=== PATIENT | female | born 1975 | race Caucasian/White ===

== ENCOUNTER 2017-03-02 10:08 | Emergency (ER) | payer SELFPAY ==
[2017-03-02] MEDS ORDERED: Albuterol/Ipratropium 3.0-0.5 MG/3 ML Neb Soln NEB ONE (10:18)
[2017-03-02] MEDS ORDERED: methylPREDNISolone Sodium Succinate 125 MG/2 ML SDV IM ONE (10:19)
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
[2017-03-02] MEDS ORDERED: Racepinephrine 2.25% 0.5 ML Neb Soln ONE (10:37)
[2017-03-02] MEDS ORDERED: Racepinephrine 2.25% 0.5 ML Neb Soln NEB ONE ×2 (10:37→10:39)
[2017-03-02] MEDS ORDERED: LORazepam 2 MG/ML MDV IVPUSH ONE (10:44)
[2017-03-02] MEDS ORDERED: Benzonatate 100 MG Cap PO ONE (10:44)
[2017-03-02] MEDS ORDERED: methylPREDNISolone Sodium Succinate 125 MG/2 ML SDV IVPUSH SCH (10:45)
[2017-03-02 11:26] LABS: CHLORIDE,CL 108 mmol/L (98-110); SODIUM,NA 142 mmol/L (136-146)
--- NOTE | 2017-03-02 11:26 | CR ---
EXAMINATION: Portable chest radiograph. HISTORY: Cough. FINDINGS: The trachea is midline. The cardiomediastinal silhouette is within normal limits. No pulmonary infil trates, effusions or pneumothorax. Osseous structures appear unremarkable. IMPRESSION: No acute cardiopulmonary process.
--- NOTE | 2017-03-02 11:35 | EDM.PDOC ---
[id number] Information: Reports: Patient History Limitations: Reports: No Limitations Bilateral Anterior Chest Pain Score (Numeric/FACES): 9 - Related Data Allergies Allergy/AdvReac Type Severity Reaction Status Date / Time acetaminophen [From Vicodin] Allergy Stomach Verified 10/17/14 18:01 Upset codeine Allergy Stomach Verified 10/17/14 18:01 Upset hydrocodone bitartrate Allergy Stomach Verified 10/17/14 18:01 [From Vicodin] Upset morphine Allergy Stomach Verified 10/17/14 18:01 Upset oxycodone HCl [From Percocet] Allergy Stomach Verified 10/17/14 18:01 Upset maple Allergy Airway Uncoded 03/02/17 10:39 Tightness MSG Allergy Airway Uncoded 03/02/17 10:39 Tightness mushrooms Allergy Airway Uncoded 03/02/17 10:39 Tightness tomato Allergy Airway Uncoded 03/02/17 10:39 Tightness yeast Allergy Airway Uncoded 03/02/17 10:39 Tightness Home Meds: Home Meds Albuterol [Ventolin HFA] 2 puff [id number] PRN 03/02/17 [History] Benzonatate 200 mg PO TID #30 capsule 03/02/17 [Rx] Cholecalciferol (Vitamin D3) [Vitamin D] 1 tab DAILY 03/02/17 [History] Dextromethorphan/guaiFENesin [Mucinex DM ER 600-30 MG] 1 tab PO BID PRN #20 tab.er 03/02/17 [Rx] Fexofenadine [Miriam] 1 tab DAILY 03/02/17 [History] Fluticasone Propionate [Flovent HFA 110 MCG] 12 gm INH BID #1 inhaler 03/02/17 [ Rx] Prednisone [IMW: predniSONE] 60 mg PO WITHBREAKFAST #21 tab 03/02/17 [Rx] Past Medical History HEENT History: Reports: None Cardiovascular History: Reports: None Respiratory History: Reports: Asthma, Other (See Below) Other Respiratory History: Reactive Airway Disease Gastrointestinal History: Reports: None Genitourinary History: Reports: None REPAIR MILLER History: Reports: None Musculoskeletal History: Reports: None Neurological History: Reports: None Psychiatric History: Reports: None Endocrine/Metabolic History: Reports: None Immunologic History: Reports: None Oncologic (Cancer) History: Reports: None Dermatologic History: Reports: None Social & Family History - Tobacco Use Smoking Status *Q: Current Every Day Smoker Years of Tobacco use: 4 Used Tobacco, but Quit: No Month Tobacco Last Used: Nov Second Hand Smoke Exposure: Yes - Caffeine Use Caffeine Use: Reports: None - Alcohol Use Days Per Week of Alcohol Use: 0 - Recreational Drug Use Recreational Drug Use: No ED ROS GENERAL - Review of Systems Review Of Systems: See Below (Per history of present illness) ED EXAM, GENERAL - Physical Exam Exam: See Below (Per history of present illness) Course - Vital Signs Last Recorded V/S: Last Vital Signs Temp 36.7 C 03/02/17 12:10 Pulse 75 03/02/17 12:10 Resp 20 03/02/17 12:10 BP 118/69 03/02/17 12:10 Pulse Ox 98 03/02/17 12:10 - Orders/Labs/Meds Labs: Laboratory Tests 03/02/17 03/02/17 Range/Units 10:50 10:50 WBC 6.83 (4.0-11.0) K/uL RBC 4.82 (4.30-5.90) M/uL Hgb 13.4 (12.0-16.0) g/dL Hct 41.1 (36.0-46.0) % MCV 85.3 (80.0-98.0) fL MCH 27.8 (27.0-32.0) pg MCHC 32.6 (31.0-37.0) g/dL RDW Std Deviation 46.7 (28.0-62.0) fl RDW Coeff of Rasheeda 15 (11.0-15.0) % Plt Count 250 (150-400) K/uL MPV 9.40 (7.40-12.00) fL Neut % (Auto) 56.0 (48.0-80.0) % Lymph % (Auto) 37.2 (16.0-40.0) % [place] % (Auto) 4.2 (0.0-15.0) % Eos % (Auto) 1.9 (0.0-7.0) % Baso % (Auto) 0.7 (0.0-1.5) % Neut # (Auto) 3.8 (1.4-5.7) K/uL Lymph # (Auto) 2.5 H (0.6-2.4) K/uL [place] # (Auto) 0.3 (0.0-0.8) K/uL Eos # (Auto) 0.1 (0.0-0.7) K/uL Baso # (Auto) 0.1 (0.0-0.1) K/uL Nucleated RBC % 0.0 /100WBC Nucleated RBCs # 0 K/uL Sodium 142 (136-146) mmol/L Potassium 3.8 (3.5-5.1) mmol/L Chloride 108 (98-110) mmol/L Carbon Dioxide 23 (21-31) mmol/L BUN 9 (6.0-23.0) mg/dL Creatinine 0.8 (0.6-1.5) mg/dL Est Cr Clr Drug Dosing TNP Estimated GFR (MDRD) > 60.0 ml/min Glucose 100 (60-110) mg/dL Calcium 9.3 (8.8-10.8) mg/dL Total Bilirubin 0.3 (0.1-1.5) mg/dL AST 13 (5-40) IU/L ALT 16 (8-54) IU/L Alkaline Phosphatase 52 (40-150) Total Protein 7.0 (6.0-8.0) g/dL Albumin 4.2 (3.5-5.0) g/dL Globulin 2.8 (2.0-3.5) g/dL Albumin/Globulin Ratio 1.5 (1.3-2.8) Meds: Medications Discontinued Medications Generic Name Dose Route Start Last Admin Trade Name Jakeq PRN Reason Stop Dose Admin Albuterol/Ipratropium 3 ml 03/02/17 10:18 03/02/17 10:26 Duoneb 3.0-0.5 Mg/3 Ml NEB 03/02/17 10:19 3 ml ONETIME ONE Administration Benzonatate 200 mg 03/02/17 10:44 03/02/17 11:01 Tessalon Perles PO 03/02/17 10:45 200 mg ONETIME ONE Administration Lorazepam 1 mg 03/02/17 10:44 03/02/17 11:00 Ativan IVPUSH 03/02/17 10:45 1 mg ONETIME ONE Administration Methylprednisolone Sodium Succinate 125 mg 03/02/17 10:19 Solu-Medrol IM 03/02/17 10:20 ONETIME ONE Methylprednisolone Sodium Succinate 125 mg 03/02/17 10:45 03/02/17 10:41 Solu-Medrol IVPUSH 125 mg Q6H SIRENA Administration Racepinephrine 0.5 ml 03/02/17 10:37 03/02/17 10:44 S-2 2.25% NEB 03/02/17 10:38 Not Given ONETIME ONE Racepinephrine 0.5 ml 03/02/17 10:39 03/02/17 10:41 S-2 2.25% NEB 03/02/17 10:40 Not Given ONETIME ONE Racepinephrine Confirm 03/02/17 10:37 03/02/17 10:41 S-2 2.25% Administered 03/02/17 10:38 Not Given Dose 0.5 ml .ROUTE .STK-MED ONE Departure - Departure Time of Disposition: 11:35 Disposition: Home, Self-Care 01 Condition: good Clinical Impression: Acute asthma, Viral URI with cough, Asthma exacerbation - Discharge Information Prescriptions: Benzonatate 200 mg PO TID #30 capsule Dextromethorphan/guaiFENesin [Mucinex DM ER 600-30 MG] 1 tab PO BID PRN #20 tab.er PRN Reason: Congestion Fluticasone Propionate [Flovent HFA 110 MCG] 12 gm INH BID #1 inhaler Prednisone [IMW: predniSONE] 60 mg PO WITHBREAKFAST #21 tab Instructions: Asthma, Adult, Upper Respiratory Infection, Adult, [id number] Referrals: PCP,None [Primary Care Provider] - Forms: ED Department Discharge Additional Instructions: Your findings are consistent with a viral upper respiratory infection. A viral infection does not require antibiotics nor would they be helpful. This is why he did not feel any symptomatic improvement after your course of Zithromax . Your chest x-ray does not show any pneumonia or acute abnormality. It's important that you finish prednisone as prescribed. Use Mucinex DM and Tessalon as prescribed as needed for cough. Use inhaled steroids as prescribed for 14 days. He may find humidified air very helpful so use a humidifier, especially while sleeping. All up with your DrKavita tomorrow and return immediately for new severe or worsening symptoms ED HISTORY OF PRESENT ILLNESS - General Chief Complaint: Respiratory Problem Stated Complaint: HARD TIME BREATHING Time Seen by Provider: 03/02/17 10:16 Source of Information: Reports: Patient, Family History Limitations: Reports: No Limitations - History of Present Illness INITIAL COMMENTS - FREE TEXT/NARRATIVE: HISTORY AND PHYSICAL: History of present illness: [41-year-old female with a history of asthma now complaining of productive cough. No exertional chest pain. No fevers chills sweats or shaking chills. Denies abdominal pain Review of systems: As per history of present illness and below otherwise all systems reviewed and negative. Past medical history: As per history of present illness and as reviewed below otherwise noncontributory. Surgical history: As per history of present illness and as reviewed below otherwise noncontributory. Social history: No reported history of drug or alcohol abuse. Family history: As per history of present illness and as reviewed below otherwise noncontributory. Physical exam: HEENT: Atraumatic, normocephalic, pupils reactive, negative for conjunctival pallor or scleral icterus, mucous membranes moist, throat clear, neck supple, nontender, trachea midline. Lungs: Clear to auscultation, breath sounds equal bilaterally, chest nontender. Heart: S1S2, regular, negative for clicks, rubs, or JVD. Abdomen: Soft, nondistended, nontender. Negative for masses or hepatosplenomegaly. Negative for costovertebral tenderness. Pelvis: Stable nontender. Genitourinary: Deferred. Rectal: Deferred. Extremities: Atraumatic, negative for cords or calf pain. Neurovascular unremarkable. Neuro: Awake, alert, oriented. Cranial nerves II through XII unremarkable. Cerebellum unremarkable. Motor and sensory unremarkable throughout. Exam nonfocal. Diagnostics: [] Therapeutics: [] Impression: [] Plan: [Signs and symptoms consistent with asthma exacerbation and bronchitis. Patient will be treated. Stable on reevaluation prior to discharge. Patient agrees with outpatient follow-up and strict return precautions given] Definitive disposition and diagnosis as appropriate pending reevaluation and review of above. - Related Data Allergies/ADRs: Allergies Allergy/AdvReac Type Severity Reaction Status Date / Time acetaminophen [From Vicodin] Allergy Stomach Verified 10/17/14 18:01 Upset codeine Allergy Stomach Verified 10/17/14 18:01 Upset hydrocodone bitartrate Allergy Stomach Verified 10/17/14 18:01 [From Vicodin] Upset morphine Allergy Stomach Verified 10/17/14 18:01 Upset oxycodone HCl [From Percocet] Allergy Stomach Verified 10/17/14 18:01 Upset maple Allergy Airway Uncoded 03/02/17 10:39 Tightness MSG Allergy Airway Uncoded 03/02/17 10:39 Tightness mushrooms Allergy Airway Uncoded 03/02/17 10:39 Tightness tomato Allergy Airway Uncoded 03/02/17 10:39 Tightness yeast Allergy Airway Uncoded 03/02/17 10:39 Tightness Home Meds: Home Meds Albuterol [Ventolin HFA] 2 puff [id number] PRN 03/02/17 [History] Benzonatate 200 mg PO TID #30 capsule 03/02/17 [Rx] Cholecalciferol (Vitamin D3) [Vitamin D] 1 tab DAILY 03/02/17 [History] Dextromethorphan/guaiFENesin [Mucinex DM ER 600-30 MG] 1 tab PO BID PRN #20 tab.er 03/02/17 [Rx] Fexofenadine [Miriam] 1 tab DAILY 03/02/17 [History] Fluticasone Propionate [Flovent HFA 110 MCG] 12 gm INH BID #1 inhaler 03/02/17 [ Rx] Prednisone [IMW: predniSONE] 60 mg PO WITHBREAKFAST #21 tab 03/02/17 [Rx] Departure - Departure Time of Disposition: 11:36 Disposition: Home, Self-Care 01 Condition: good Clinical Impression: Acute asthma, Viral URI with cough, Asthma exacerbation Prescriptions: Benzonatate 200 mg PO TID #30 capsule Dextromethorphan/guaiFENesin [Mucinex DM ER 600-30 MG] 1 tab PO BID PRN #20 tab.er PRN Reason: Congestion Fluticasone Propionate [Flovent HFA 110 MCG] 12 gm INH BID #1 inhaler Prednisone [IMW: predniSONE] 60 mg PO WITHBREAKFAST #21 tab Instructions: Asthma, Adult, Upper Respiratory Infection, Adult, [id number] Referrals: PCP,None [Primary Care Provider] - Forms: ED Department Discharge Additional Instructions: Your findings are consistent with a viral upper respiratory infection. A viral infection does not require antibiotics nor would they be helpful. This is why he did not feel any symptomatic improvement after your course of Zithromax . Your chest x-ray does not show any pneumonia or acute abnormality. It's important that you finish prednisone as prescribed. Use Mucinex DM and Tessalon as prescribed as needed for cough. Use inhaled steroids as prescribed for 14 days. He may find humidified air very helpful so use a humidifier, especially while sleeping. All up with your DrKavita tomorrow and return immediately for new severe or worsening symptoms
[2017-03-02 12:12] VITALS: BP 118/69
== END 2017-03-02 11:55 | disposition home or self-care (01) ==
LOC: MW.ED 10:08
DX: J45.901 Unspecified asthma with (acute) exacerbation (principal); J06.9 Acute upper respiratory infection, unspecified; F17.200 Nicotine dependence, unspecified, uncomplicated; Z88.5 Allergy status to narcotic agent; Z88.6 Allergy status to analgesic agent; Z88.8 Allergy status to other drugs, medicaments and biological substances; Z79.899 Other long term (current) drug therapy
CPT/HCPCS: 36415; 71010; 80053; 85025; 96374; 96375; 99284; A9270; J2060; J2930

== ENCOUNTER 2018-04-21 12:09 | Emergency (ER) | payer SELFPAY ==
[2018-04-21] MEDS ORDERED: Sodium Chloride 0.9% 1,000 ML IV ONE (12:14)
--- NOTE | 2018-04-21 12:19 | EDM.PDOC ---
ED HPI GENERAL MEDICAL PROBLEM - General Chief Complaint: Neuro Symptoms/Deficits Stated Complaint: numbness and tingling in her arms Time Seen by Provider: 04/21/18 12:11 Source of Information: Reports: Patient History Limitations: Reports: No Limitations - History of Present Illness INITIAL COMMENTS - FREE TEXT/NARRATIVE: HISTORY AND PHYSICAL: History of present illness: Patient is a 42-year-old female who presents to the emergency department with complaints of left-sided numbness and tingling with headache for approximately 30-45 minutes prior to arrival. She states she was driving her vehicle when she started to feel numbness and tingling to the left side of her face, weakness and "bright light in her line of vision on the left side. She has a new onset of headache to posterior scalp. She states she has a history of TIA's and was concerned she was having a "stroke". She pulled over her vehicle and called for assistance from a friend; to have her brought to the emergency room. She arrived via private vehicle and was ambulatory without difficulty into our emergency department. She denies any fever, chills, chest pain, shortness of breath or diaphoresis. Denies any abdominal pain, nausea, vomiting, diarrhea or constipation. Review of systems: As per history of present illness and below otherwise all systems reviewed and negative. Past medical history: As per history of present illness and as reviewed below otherwise noncontributory. Surgical history: As per history of present illness and as reviewed below otherwise noncontributory. Social history: No reported history of drug or alcohol abuse. Family history: As per history of present illness and as reviewed below otherwise noncontributory. Physical exam: General: Well-developed and thin appearing 42-year-old female. Alert and oriented. Nontoxic appearing and in no acute distress. HEENT: Atraumatic, normocephalic, pupils equal and reactive bilaterally, negative for conjunctival pallor or scleral icterus, mucous membranes moist, throat clear, neck supple, nontender, trachea midline. No drooling or trismus noted. No meningeal signs Lungs: Clear to auscultation, breath sounds equal bilaterally, chest nontender. Heart: S1S2, regular rate and rhythm without overt murmur Abdomen: Soft, nondistended, nontender. Negative for masses or hepatosplenomegaly. Negative for costovertebral tenderness. Pelvis: Stable nontender. Genitourinary: Deferred. Rectal: Deferred. Skin: Intact, warm, dry. No lesions or rashes noted. Extremities: Atraumatic, equal and strong grasps bilaterally. Full strength to lower extremities. No drifting noted. No neuro or muscular deficits noted. She is negative for cords or calf pain. Neurovascular unremarkable. Neuro: Awake, alert, oriented. Cranial nerves II through XII unremarkable. Cerebellum unremarkable. Motor and sensory unremarkable throughout. Exam nonfocal. Notes: Previous TIA was at age 22, due to a allergy to her arm on therapy. Current NIH stroke scale = 0. No deficits are noted at this time. We'll do a Head CT along with routine labs. Lab work is within normal limits. Head CT is negative. Negative chest x-ray with no evidence of infiltrate or pneumonia. Patient has been up to the bathroom , ambulating without difficulty. NIH continues to be 0. Vital signs are stable. All her results were explained and shared with the patient and significant other at the bedside. She states her headache is gone and she feels "more clear ". She states that she believes her symptoms were due to the headache, "as soon as you gave me those fluids my headache just went away". I did offer her admission at this time stating that it would be beneficial to observe her overnight to make sure her symptoms do not return or new symptoms develop. She states since she "feels better" she would like to be discharged home. She currently has a sister who is staying with her from out of state. She voices understanding and agreeable to returning if her symptoms return or worsen. Her primary care provider in the next. Diagnostics: CBC, CMP, UA, urine drug screen, troponin, EKG, bedside glucose, head CT Therapeutics: IV fluids Impression: Parasthesia Headache Plan: 1. Please take the next 24-48 hours to rest. Good nutrition and increase your oral fluids. 2. As we discussed, if your symptoms return or worsen please return to the emergency room (Call an Ambulance). Follow-up with your primary care provider in the next 1-2 days. Return to the ED as needed as discussed. Definitive disposition and diagnosis as appropriate pending reevaluation and review of above. Onset: Today Duration: Minutes: Location: Reports: Head - Related Data Allergies Allergy/AdvReac Type Severity Reaction Status Date / Time acetaminophen [From Vicodin] Allergy Stomach Verified 04/21/18 12:38 Upset codeine Allergy Stomach Verified 04/21/18 12:38 Upset hydrocodone bitartrate Allergy Stomach Verified 04/21/18 12:38 [From Vicodin] Upset morphine Allergy Stomach Verified 04/21/18 12:38 Upset oxycodone HCl [From Percocet] Allergy Stomach Verified 04/21/18 12:38 Upset maple Allergy Airway Uncoded 03/02/17 10:39 Tightness MSG Allergy Airway Uncoded 03/02/17 10:39 Tightness mushrooms Allergy Airway Uncoded 03/02/17 10:39 Tightness tomato Allergy Airway Uncoded 03/02/17 10:39 Tightness yeast Allergy Airway Uncoded 03/02/17 10:39 Tightness Home Meds: Home Meds Albuterol [Ventolin HFA] 2 puff [id number] PRN 03/02/17 [History] Benzonatate 200 mg PO TID #30 capsule 03/02/17 [Rx] Cholecalciferol (Vitamin D3) [Vitamin D] 1 tab DAILY 03/02/17 [History] Dextromethorphan/guaiFENesin [Mucinex DM ER 600-30 MG] 1 tab PO BID PRN #20 tab.er 03/02/17 [Rx] Fexofenadine [Miriam] 1 tab DAILY 03/02/17 [History] Fluticasone Propionate [Flovent HFA 110 MCG] 12 gm INH BID #1 inhaler 03/02/17 [ Rx] Prednisone [IMW: predniSONE] 60 mg PO WITHBREAKFAST #21 tab 03/02/17 [Rx] Past Medical History HEENT History: Reports: None Cardiovascular History: Reports: None Respiratory History: Reports: Asthma, Other (See Below) Other Respiratory History: Reactive Airway Disease Gastrointestinal History: Reports: None Genitourinary History: Reports: None WR[employer] History: Reports: None Musculoskeletal History: Reports: None Neurological History: Reports: None Psychiatric History: Reports: None Endocrine/Metabolic History: Reports: None Immunologic History: Reports: None Oncologic (Cancer) History: Reports: None Dermatologic History: Reports: None Social & Family History - Caffeine Use Caffeine Use: Reports: None ED ROS GENERAL - Review of Systems Review Of Systems: ROS reveals no pertinent complaints other than HPI. ED EXAM, NEURO - Physical Exam Exam: See Below (See dictation) Course - Vital Signs Last Recorded V/S: Last Vital Signs Temp 97.6 F 04/21/18 12:38 Pulse 88 04/21/18 12:38 Resp 18 04/21/18 12:38 BP 137/85 04/21/18 12:38 Pulse Ox 98 04/21/18 12:38 - Orders/Labs/Meds Orders: Active Orders 24 hr Category Date Time Status Blood Glucose Check, Bedside [RC] ONETIME Care 04/21/18 12:13 Active EKG Documentation Completion [RC] STAT Care 04/21/18 12:13 Active DRUG SCREEN, URINE [URCHEM] Stat Lab 04/21/18 13:30 Ordered UA W/MICROSCOPIC [URIN] Stat Lab 04/21/18 13:30 Ordered Labs: Laboratory Tests 04/21/18 04/21/18 04/21/18 Range/Units 12:25 12:25 13:30 WBC 10.02 (4.0-11.0) K/uL RBC 4.92 (4.30-5.90) M/uL Hgb 14.5 (12.0-16.0) g/dL Hct 42.1 (36.0-46.0) % MCV 85.6 (80.0-98.0) fL MCH 29.5 (27.0-32.0) pg MCHC 34.4 (31.0-37.0) g/dL RDW Std Deviation 45.7 (28.0-62.0) fl RDW Coeff of Rasheeda 15 (11.0-15.0) % Plt Count 361 (150-400) K/uL MPV 9.20 (7.40-12.00) fL Neut % (Auto) 74.1 (48.0-80.0) % Lymph % (Auto) 18.9 (16.0-40.0) % Greene % (Auto) 5.7 (0.0-15.0) % Eos % (Auto) 0.5 (0.0-7.0) % Baso % (Auto) 0.8 (0.0-1.5) % Neut # (Auto) 7.4 H (1.4-5.7) K/uL Lymph # (Auto) 1.9 (0.6-2.4) K/uL Greene # (Auto) 0.6 (0.0-0.8) K/uL Eos # (Auto) 0.1 (0.0-0.7) K/uL Baso # (Auto) 0.1 (0.0-0.1) K/uL Nucleated RBC % 0.0 /100WBC Nucleated RBCs # 0 K/uL Sodium 140 (136-145) mmol/L Potassium 3.8 (3.5-5.1) mmol/L Chloride 103 (98-107) mmol/L Carbon Dioxide 25.6 (21.0-32.0) mmol/L BUN 13 (7.0-18.0) mg/dL Creatinine 0.9 (0.6-1.0) mg/dL Est Cr Clr Drug Dosing 57.12 mL/min Estimated GFR (MDRD) > 60.0 ml/min Glucose 111 H (74-106) mg/dL Calcium 9.1 (8.5-10.1) mg/dL Total Bilirubin 0.5 (0.2-1.0) mg/dL AST 12 L (15-37) IU/L ALT 18 (14-63) IU/L Alkaline Phosphatase 54 (46-116) U/L Troponin I < 0.050 (0.000-0.056) ng/mL Total Protein 7.8 (6.4-8.2) g/dL Albumin 4.4 (3.4-5.0) g/dL Globulin 3.4 (2.0-3.5) g/dL Albumin/Globulin Ratio 1.3 (1.3-2.8) Urine Color YELLOW Urine Appearance CLEAR Urine pH 6.0 (5.0-8.0) Ur Specific [place] 1.010 (1.001-1.035) Urine Protein NEGATIVE (NEGATIVE) mg/dL Urine Glucose (UA) NEGATIVE (NEGATIVE) mg/dL Urine Ketones NEGATIVE (NEGATIVE) mg/dL Urine Occult Blood NEGATIVE (NEGATIVE) Urine Nitrite NEGATIVE (NEGATIVE) Urine Bilirubin NEGATIVE (NEGATIVE) Urine Urobilinogen 0.2 (<2.0) EU/dL Ur Leukocyte Esterase NEGATIVE (NEGATIVE) Urine RBC 0-1 (0-2/HPF) Urine WBC 0-2 (0-5/HPF) Ur Epithelial Cells OCCASIONAL (NONE-FEW) Urine Bacteria RARE (NEGATIVE) Urine Opiates Screen (NEGATIVE) Ur Oxycodone Screen (NEGATIVE) Urine Methadone Screen (NEGATIVE) Ur Barbiturates Screen (NEGATIVE) Ur Phencyclidine Scrn (NEGATIVE) Ur Amphetamine Screen (NEGATIVE) U Methamphetamines Scrn (NEGATIVE) U Benzodiazepines Scrn (NEGATIVE) U Cocaine Metab Screen (NEGATIVE) U Marijuana (THC) Screen (NEGATIVE) 04/21/18 Range/Units 13:30 WBC (4.0-11.0) K/uL RBC (4.30-5.90) M/uL Hgb (12.0-16.0) g/dL Hct (36.0-46.0) % MCV (80.0-98.0) fL MCH (27.0-32.0) pg MCHC (31.0-37.0) g/dL RDW Std Deviation (28.0-62.0) fl RDW Coeff of Rasheeda (11.0-15.0) % Plt Count (150-400) K/uL MPV (7.40-12.00) fL Neut % (Auto) (48.0-80.0) % Lymph % (Auto) (16.0-40.0) % Greene % (Auto) (0.0-15.0) % Eos % (Auto) (0.0-7.0) % Baso % (Auto) (0.0-1.5) % Neut # (Auto) (1.4-5.7) K/uL Lymph # (Auto) (0.6-2.4) K/uL Greene # (Auto) (0.0-0.8) K/uL Eos # (Auto) (0.0-0.7) K/uL Baso # (Auto) (0.0-0.1) K/uL Nucleated RBC % /100WBC Nucleated RBCs # K/uL Sodium (136-145) mmol/L Potassium (3.5-5.1) mmol/L Chloride (98-107) mmol/L Carbon Dioxide (21.0-32.0) mmol/L BUN (7.0-18.0) mg/dL Creatinine (0.6-1.0) mg/dL Est Cr Clr Drug Dosing mL/min Estimated GFR (MDRD) ml/min Glucose (74-106) mg/dL Calcium (8.5-10.1) mg/dL Total Bilirubin (0.2-1.0) mg/dL AST (15-37) IU/L ALT (14-63) IU/L Alkaline Phosphatase (46-116) U/L Troponin I (0.000-0.056) ng/mL Total Protein (6.4-8.2) g/dL Albumin (3.4-5.0) g/dL Globulin (2.0-3.5) g/dL Albumin/Globulin Ratio (1.3-2.8) Urine Color Urine Appearance Urine pH (5.0-8.0) Ur Specific [place] (1.001-1.035) Urine Protein (NEGATIVE) mg/dL Urine Glucose (UA) (NEGATIVE) mg/dL Urine Ketones (NEGATIVE) mg/dL Urine Occult Blood (NEGATIVE) Urine Nitrite (NEGATIVE) Urine Bilirubin (NEGATIVE) Urine Urobilinogen (<2.0) EU/dL Ur Leukocyte Esterase (NEGATIVE) Urine RBC (0-2/HPF) Urine WBC (0-5/HPF) Ur Epithelial Cells (NONE-FEW) Urine Bacteria (NEGATIVE) Urine Opiates Screen NEGATIVE (NEGATIVE) Ur Oxycodone Screen NEGATIVE (NEGATIVE) Urine Methadone Screen NEGATIVE (NEGATIVE) Ur Barbiturates Screen NEGATIVE (NEGATIVE) Ur Phencyclidine Scrn NEGATIVE (NEGATIVE) Ur Amphetamine Screen NEGATIVE (NEGATIVE) U Methamphetamines Scrn NEGATIVE (NEGATIVE) U Benzodiazepines Scrn NEGATIVE (NEGATIVE) U Cocaine Metab Screen NEGATIVE (NEGATIVE) U Marijuana (THC) Screen NEGATIVE (NEGATIVE) Meds: Medications Discontinued Medications Generic Name Dose Route Start Last Admin Trade Name Cruz PRN Reason Stop Dose Admin Sodium Chloride 1,000 mls @ 500 mls/hr 04/21/18 12:14 04/21/18 14:46 Normal Saline IV 04/21/18 14:13 500 mls/hr STAT ONE Administration Departure - Departure Time of Disposition: 14:10 Disposition: Home, Self-Care 01 Clinical Impression: Paresthesia Headache Qualifiers: Headache type: unspecified Headache chronicity pattern: acute headache Intractability: not intractable Qualified Code(s): R51 - Headache - Discharge Information Instructions: General Headache Without Cause, Paresthesia, [id number] Referrals: PCP,Unknown [Primary Care Provider] - Forms: ED Department Discharge Additional Instructions: The following information is given to patients seen in the emergency department who are being discharged to home. This information is to outline your options for follow-up care. We provide all patients seen in our emergency department with a follow-up referral. The need for follow-up, as well as the timing and circumstances, are variable depending upon the specifics of your emergency department visit. If you don't have a primary care physician on staff, we will provide you with a referral. We always advise you to contact your personal physician following an emergency department visit to inform them of the circumstance of the visit and for follow-up with them and/or the need for any referrals to a consulting specialist. The emergency department will also refer you to a specialist when appropriate. This referral assures that you have the opportunity for follow-up care with a specialist. All of these measure are taken in an effort to provide you with optimal care, which includes your follow-up. Under all circumstances we always encourage you to contact your private physician who remains a resource for coordinating your care. When calling for follow-up care, please make the office aware that this follow-up is from your recent emergency room visit. If for any reason you are refused follow-up, please contact the [facility] Emergency Department at and asked to speak to the emergency department charge nurse. [facility] [address] [place] [id number] 1. Please take the next 24-48 hours to rest. Good nutrition and increase your oral fluids. 2. As we discussed, if your symptoms return or worsen please return to the emergency room (Call an Ambulance). Follow-up with your primary care provider in the next 1-2 days. Return to the ED as needed as discussed. - My Orders Last 24 Hours: My Active Orders 04/21/18 12:13 Blood Glucose Check, Bedside [RC] ONETIME EKG Documentation Completion [RC] STAT 04/21/18 13:30 DRUG SCREEN, URINE [URCHEM] Stat UA W/MICROSCOPIC [URIN] Stat - Assessment/Plan Last 24 Hours: My Active Orders 04/21/18 12:13 Blood Glucose Check, Bedside [RC] ONETIME EKG Documentation Completion [RC] STAT 04/21/18 13:30 DRUG SCREEN, URINE [URCHEM] Stat UA W/MICROSCOPIC [URIN] Stat
[2018-04-21 12:40] VITALS: BP 137/85
[2018-04-21 13:09] LABS: CHLORIDE,CL 103 mmol/L (98-107); SODIUM,NA 140 mmol/L (136-145)
--- NOTE | 2018-04-21 13:35 | CR ---
EXAMINATION: PA chest radiograph. HISTORY: Numbness. FINDINGS: The trachea is midline. The cardiomediastinal silhouette is within normal limits. No pulmonary infilt rates, effusions or pneumothorax. Osseous structures appear unremarkable. IMPRESSION: No acute cardiopulmonary process.
--- NOTE | 2018-04-21 13:42 | CT ---
EXAMINATION: Non contrast CT head. Coronal and sagittal reformats. HISTORY: Left-sided numbness FINDINGS: No evidence of intra or extra axial hemorrhage, mass, midline shift, hydrocephalus or edema. No hypoattenuation changes in the major vascular territories to suggest acute infarct. No abnormal intracranial calcifications are detected. No evidence of substantial vascular calcificat ions. Paranasal sinuses and mastoid air cells are well aerated without substantial findings. Orbits and gl obes are symmetric. Pituitary fossa appears unremarkable. Calvarium is intact. No evidence of skull fracture. IMPRESSION: No acute intracranial findings.
== END 2018-04-21 14:48 | disposition home or self-care (01) ==
LOC: MW.ED 12:09
DX: R51 Headache (principal); R20.2 Paresthesia of skin; R20.0 Anesthesia of skin; Z88.5 Allergy status to narcotic agent; Z88.6 Allergy status to analgesic agent; Z91.018 Allergy to other foods; Z91.09 Other allergy status, other than to drugs and biological substances; Z79.899 Other long term (current) drug therapy; J45.909 Unspecified asthma, uncomplicated
CPT/HCPCS: 36415; 70450; 71045; 80053; 80305; 81001; 84484; 85025; 93005; 96360; 96361; 99285; J7040